=== PATIENT | male | born 1975 | race Caucasian/White ===

== ENCOUNTER → 2016-07-05 | Outpatient (CLI) | payer BC ==
[~2016-07-05] MED LIST: CLR10 PO; FLUT0.15 NAE; IBUP-1050 PO; ONDA4TAB46 PO; OXYC1TAB3 PO
[2016-07-05 12:12] LABS: BASO % 0.4 %; BASO ABS # 0.03 K/uL (0-0.2); COMPLETE YES; EOS % 2.2 %; HEMATOCRIT 46.5 % (42-52); IG% 0.5 %; LYMPH % 17.7 %; LYMPH ABS # 1.39 K/uL (1.2-3.4); MEAN CELL VOLUME 90.8 fL (80-100); MEAN CORPUSCULAR HEMOGLOBIN 30.5 pg (25-34); MEAN CORPUSCULAR HGB CONC 33.5 g/dl (32-36); MEAN PLATELET VOLUME 9.6 fL (7.4-10.4); MONO % 9.6 %; NEUT % 69.6 %; PLATELET COUNT 311 K/uL (130-400); RED BLOOD COUNT 5.12 M/uL (4.7-6.1); WHITE BLOOD COUNT 7.84 K/uL (4.8-10.8)
[2016-07-05 12:24] LABS: BLOOD UREA NITROGEN 20 mg/dl (7-18); CREATININE 0.97 mg/dl (0.60-1.40); GLUCOSE 97 mg/dl (70-99)
[2016-07-05 12:25] LABS: BUN/CREATININE RATIO 20.1 (10-20); CALCIUM 9.4 mg/dl (8.5-10.1); CARBON DIOXIDE 26 mmol/L (21-32); CHLORIDE 104 mmol/L (98-107); PHOSPHORUS 3.4 mg/dl (2.5-4.9); POTASSIUM 4.1 mmol/L (3.5-5.1); SODIUM 141 mmol/L (136-145); URIC ACID 6.6 mg/dl (2.6-7.2)
--- NOTE | 2016-07-11 15:33 | CODING QUERY MEDICAL NECESSITY ---
SUPPORTING DIAGNOSIS NEEDED 76 A supporting diagnosis is required for the test/procedure performed on this patient in order for us to be reimbursed by the patient's insurance. Please provide a supporting diagnosis for the following test/procedure listed below next to the test name along with your signature. *If there is no additional diagnosis for this patient that would support the following test/procedure please document that below next to the test/procedure. DOS 07/05/16 Test(s)/Procedure(s) that require a supporting diagnosis: * VITAMIN D, 25-HYDROXY DIAGNOSIS: Provider Signature: Date: Thank you Cristiana Ponce Health Information Management Once completed, please kindly fax back to [phone] For questions please call [phone]
== END | disposition home or self-care (01) ==
LOC: C.LAB1850 10:59
PROVIDERS: ATTEND Internal Medicine Nephrology
DX: N20.0 Calculus of kidney (principal); M10.9 Gout, unspecified

== ENCOUNTER 2019-09-14 10:43 | Observation (INO) ==
--- NOTE | 2019-09-14 10:53 | Emergency Department Note ---
History of Present Illness General Chief complaint: Arrhythmia/Palpitations Stated complaint: LIGHTHEADED, IRREGULAR HEARTBEAT Time Seen by Provider: 09/14/19 10:50 History of Present Illness Provider complaint: Palpitations and lightheadedness Onset (ago): day(s) 5 Location: chest Severity: mild Maximum Pain Intensity: 0 Associated symptoms: + chest pain; no cough, no headaches, no nausea/vomiting and no shortness of breath 44-year-old male presents emergency department with lightheadedness and palpitations. He states the symptoms began 5 days ago. He also reports chest pain. He describes pain as tightness. He rates the pain as a 1 out of 10. He denies any fevers, cough, or difficulty breathing. He denies any recent travel. No hemoptysis. No exogenous hormone usage. Patient states he was seen in the emergency department 5 days ago for similar symptoms and discharged. He was placed on a Holter monitor at after following up with his PCP Dr. Peguero. Home Medications Home Medications Medication Instructions Recorded Confirmed Type allopurinol 300 mg tablet 300 mg PO HS #30 tab 05/21/19 09/14/19 Rx Lactobacillus acidophilus 1.5 mg 100 mmu cells PO DAILY 06/07/19 09/14/19 History (250 million cell) capsule fluticasone propionate 50 1 sprays INTNAS BID PRN gm 06/07/19 09/14/19 History mcg/actuation nasal spray,suspension loratadine 10 mg tablet 10 mg PO DAILY PRN 06/07/19 09/14/19 History ondansetron HCl 8 mg tablet 8 mg PO TID PRN #30 tab 06/07/19 09/14/19 Rx meloxicam 15 mg PO DAILY PRN 09/09/19 09/14/19 History Allergies Allergy/AdvReac Type Severity Reaction Status Date / Time Penicillins Allergy Intermediate SHORTNESS Verified 09/14/19 11:50 OF BREATH Sulfa (Sulfonamide Allergy Intermediate HIVES Verified 09/14/19 11:50 Antibiotics) Past Med/Surg History Medical History DJD (degenerative joint disease) of knee History of renal stone (Chronic) X8-9 the past Nephrolithiasis (Acute) Scoliosis (Chronic) Surgical History History of spinal fusion for scoliosis (Resolved) Family History Grandfather (Maternal) Myocardial infarction Denies family history of Ovarian cancer Prostate cancer Kidney disease Breast cancer Colorectal cancer Social History Preferred Language: Albanian Breakfast Manager Required: No Beliefs That Will Affect Care: None marital status: Current Living Situation: Spouse current occupational status: employed 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 [employer] Other Information That Helps Us Care for You: No Feels Safe at Home: Yes Smoking Status: Never smoker Hx Alcohol Use: Yes Alcohol type: beer and hard liquor Hx Substance Use: No Childhood Exposure to Second-Hand Smoke: Yes Dental Care, Regularly: No Physical Activity Frequency: Does not Exercise Seatbelt Use: always Sunscreen Use: No Review of Systems A total of 10 systems reviewed and were otherwise negative Physical Exam Vital Signs Vital Signs - 24 hr 09/14/19 10:45 09/14/19 11:02 09/14/19 11:15 Temperature 36.7 C Temperature Source Oral Pulse Rate 92 H 83 83 Pulse Rate [Apical] Pulse Rate from SpO2 Sensor 85 Pulse Rhythm Pulse Rhythm [Apical] Pulse Strength [Apical] Respiratory Rate 20 15 16 Respiratory Effort / Characteristics Non-Labored Respiratory Depth Normal Respiratory Pattern Blood Pressure 171/95 H 143/87 H Blood Pressure [Right Arm] Blood Pressure Mean 120 112 Blood Pressure Mean [Right Arm] Blood Pressure Position [Right Arm] Pulse Oximetry 98 96 Oxygen Delivery Method Room Air Room Air Sepsis Recent Fever Within 48 Hours No Sepsis Action Taken by Nursing No Action Required 09/14/19 11:16 09/14/19 11:30 09/14/19 11:45 Temperature Temperature Source Pulse Rate 80 89 77 Pulse Rate [Apical] 80 Pulse Rate from SpO2 Sensor 86 73 Pulse Rhythm Regular Pulse Rhythm [Apical] Regular Pulse Strength [Apical] Normal Respiratory Rate 20 13 15 Respiratory Effort / Characteristics Non-Labored Spontaneous Respiratory Depth Normal Respiratory Pattern Regular Blood Pressure 135/78 Blood Pressure [Right Arm] 135/78 Blood Pressure Mean 94 Blood Pressure Mean [Right Arm] 97 Blood Pressure Position [Right Arm] Sitting Pulse Oximetry 97 97 98 Oxygen Delivery Method Room Air Room Air Sepsis Recent Fever Within 48 Hours Sepsis Action Taken by Nursing 09/14/19 12:15 09/14/19 12:30 09/14/19 12:31 Temperature Temperature Source Pulse Rate 85 88 82 Pulse Rate [Apical] Pulse Rate from SpO2 Sensor 68 73 73 Pulse Rhythm Pulse Rhythm [Apical] Pulse Strength [Apical] Respiratory Rate 14 19 14 Respiratory Effort / Characteristics Respiratory Depth Respiratory Pattern Blood Pressure 144/80 H 153/70 H Blood Pressure [Right Arm] Blood Pressure Mean 89 102 Blood Pressure Mean [Right Arm] Blood Pressure Position [Right Arm] Pulse Oximetry 97 98 96 Oxygen Delivery Method Sepsis Recent Fever Within 48 Hours Sepsis Action Taken by Nursing 09/14/19 12:45 09/14/19 13:00 09/14/19 13:15 Temperature Temperature Source Pulse Rate 79 85 84 Pulse Rate [Apical] Pulse Rate from SpO2 Sensor 72 80 82 Pulse Rhythm Pulse Rhythm [Apical] Pulse Strength [Apical] Respiratory Rate 14 15 15 Respiratory Effort / Characteristics Respiratory Depth Respiratory Pattern Blood Pressure 151/78 H 151/78 H Blood Pressure [Right Arm] Blood Pressure Mean 96 102 Blood Pressure Mean [Right Arm] Blood Pressure Position [Right Arm] Pulse Oximetry 96 95 96 Oxygen Delivery Method Sepsis Recent Fever Within 48 Hours Sepsis Action Taken by Nursing 09/14/19 13:30 09/14/19 13:31 Temperature Temperature Source Pulse Rate 87 81 Pulse Rate [Apical] Pulse Rate from SpO2 Sensor 63 62 Pulse Rhythm Pulse Rhythm [Apical] Pulse Strength [Apical] Respiratory Rate 15 16 Respiratory Effort / Characteristics Respiratory Depth Respiratory Pattern Blood Pressure 124/72 Blood Pressure [Right Arm] Blood Pressure Mean 85 Blood Pressure Mean [Right Arm] Blood Pressure Position [Right Arm] Pulse Oximetry 96 97 Oxygen Delivery Method Sepsis Recent Fever Within 48 Hours Sepsis Action Taken by Nursing Physical Exam GENERAL: He is oriented to person, place, and time. He appears well-developed and well-nourished. He does not appear distressed. HENT: Exam performed. - Head: Normocephalic and atraumatic. - Right Ear: External ear normal. No mastoid tenderness. - Left Ear: External ear normal. No mastoid tenderness. - Mouth/Throat: The oropharynx is clear and moist. No trismus in the jaw. No dental abscesses or uvula swelling. No oropharyngeal exudate or tonsillar abscesses. EYES: Conjunctivae and EOM are normal. Pupils are equal, round, and reactive to light. Right eye exhibits no discharge. Left eye exhibits no discharge. No scleral icterus. NECK: Normal range of motion. Neck supple. No JVD present. No spinous process tenderness present. No carotid bruit present. No rigidity. No tracheal deviation and normal range of motion present. No Brudzinski's sign and no Kernig's sign noted. CV: Normal rate, regular rhythm, normal heart sounds and intact distal pulses. There is no peripheral edema. Palpable radial pulses bue. PULM/CHEST: Effort normal and breath sounds normal. No respiratory distress. No stridor. He has no wheezes. He has no rales. - Chest Wall: He exhibits no tenderness. ABD: Obese. The abdomen is soft. Bowel sounds are normal. He has no distension. No mass is present. There is no tenderness. There is no rebound, no guarding, no Charlton's sign and no tenderness at McBurney's point. Rovsig negative. MUSC/SKEL: Normal range of motion. There is no peripheral edema, tenderness or deformity. LYMPH: No cervical adenopathy. NEURO: He is alert and oriented to person, place, and time. He has normal strength. No cranial nerve deficit or sensory deficit. Coordination and gait normal. GCS eye subscore is 4. GCS verbal subscore is 5. GCS motor subscore is 6. Cerebellar tests wnl. SKIN: Skin is warm and dry. He is not diaphoretic. PSYCH: He has a normal mood and affect. Behavior is normal. Judgment and thought content normal. Course Course 1052: The patient was evaluated in room A2. A complete history and physical exam was performed. EMR reviewed. Patient was seen in the emergency department on September 08. At that time he had a leukocytosis of 13.1. Troponin negative. CTA of the head, CTA of the head and neck, and chest x-ray were negative. Patient also had lab work done yesterday which showed a leukocytosis of 14.34. Cardiac monitoring: An order was placed for continuous cardiac monitoring. The monitor shows a rate of 95 with sinus rhythm 1300: Vital signs stable. Labs and imaging within normal limits. Given the patient's progression of symptoms and his continued system he will be admitted to the hospital for rule out ACS. [facility] hospitalist was contacted, Dr. Day. Administered Medications Discontinued Medications Aspirin (Aspirin) 324 mg PO NOW STA Stop: 09/14/19 11:10 Last Admin: 09/14/19 11:26 Dose: 324 mg Documented by: [id number] Medical Decision Making Laboratory Data Result diagrams: 09/14/19 11:16 09/14/19 11:16 Lab Results 09/14/19 09/14/19 09/14/19 Range/Units 11:16 11:16 11:16 WBC 9.54 (4.8-10.8) K/uL RBC 5.11 (4.7-6.1) M/uL Hgb 16.1 (14.0-18.0) g/dL Hct 47.6 (42-52) % MCV 93.2 (80-100) fL MCH 31.5 (25-34) pg MCHC 33.8 (32-36) g/dL RDW Std Deviation 45.4 (36.4-46.3) fL RDW Coeff of Steven 13.3 (11.5-14.5) % Plt Count 303 (130-400) K/uL MPV 9.5 (7.4-10.4) fL Immature Gran % (Auto) 0.8 % Neut % (Auto) 72.4 % Lymph % (Auto) 16.9 % Sharp % (Auto) 8.0 % Eos % (Auto) 1.7 % Baso % (Auto) 0.2 % Immature Gran # (Auto) 0.08 H (0.00-0.02) K/uL Neut # (Auto) 6.91 H (1.4-6.5) K/uL Lymph # (Auto) 1.61 (1.2-3.4) K/uL Sharp # (Auto) 0.76 H (0.11-0.59) K/uL Eos # (Auto) 0.16 (0-0.5) K/uL Baso # (Auto) 0.02 (0-0.2) K/uL PT 11.7 (9.0-12.0) Seconds INR 1.1 (0.9-1.1) APTT 26.5 (21.0-31.0) Seconds PTT Ratio 0.9 D-Dimer (0-500) ug/L FEU Sodium (136-145) mmol/L Potassium (3.5-5.1) mmol/L Chloride (98-107) mmol/L Carbon Dioxide (21-32) mmol/L Anion Gap (3-11) BUN (7-18) mg/dl Creatinine (0.6-1.4) mg/dl Est Cr Clr Drug Dosing ml/min Est GFR ( Amer) Est GFR (Non-Af Amer) BUN/Creatinine Ratio (10-20) Glucose (70-99) mg/dl Lactate 1.3 (0.4-2.0) mmol/L Calcium (8.5-10.1) mg/dl Magnesium (1.8-2.4) mg/dl Troponin I (0-0.045) ng/ml NT-Pro-B Natriuret Pep (0-450) pg/ml Lipase (73-393) U/L Influenza Type A (PCR) (Neg) Influenza Type B (PCR) (Neg) 09/14/19 09/14/19 09/14/19 Range/Units 11:16 11:16 11:16 WBC (4.8-10.8) K/uL RBC (4.7-6.1) M/uL Hgb (14.0-18.0) g/dL Hct (42-52) % MCV (80-100) fL MCH (25-34) pg MCHC (32-36) g/dL RDW Std Deviation (36.4-46.3) fL RDW Coeff of Steven (11.5-14.5) % Plt Count (130-400) K/uL MPV (7.4-10.4) fL Immature Gran % (Auto) % Neut % (Auto) % Lymph % (Auto) % Sharp % (Auto) % Eos % (Auto) % Baso % (Auto) % Immature Gran # (Auto) (0.00-0.02) K/uL Neut # (Auto) (1.4-6.5) K/uL Lymph # (Auto) (1.2-3.4) K/uL Sharp # (Auto) (0.11-0.59) K/uL Eos # (Auto) (0-0.5) K/uL Baso # (Auto) (0-0.2) K/uL PT (9.0-12.0) Seconds INR (0.9-1.1) APTT (21.0-31.0) Seconds PTT Ratio D-Dimer 400 (0-500) ug/L FEU Sodium 140 (136-145) mmol/L Potassium 3.9 (3.5-5.1) mmol/L Chloride 108 H (98-107) mmol/L Carbon Dioxide 26 (21-32) mmol/L Anion Gap 6.0 (3-11) BUN 11 (7-18) mg/dl Creatinine 0.94 (0.6-1.4) mg/dl Est Cr Clr Drug Dosing 164.2 ml/min Est GFR ( Amer) 114.6 Est GFR (Non-Af Amer) 98.9 BUN/Creatinine Ratio 12.1 (10-20) Glucose 101 H (70-99) mg/dl Lactate (0.4-2.0) mmol/L Calcium 8.6 (8.5-10.1) mg/dl Magnesium 2.2 (1.8-2.4) mg/dl Troponin I < 0.015 (0-0.045) ng/ml NT-Pro-B Natriuret Pep 29 (0-450) pg/ml Lipase 212 (73-393) U/L Influenza Type A (PCR) Neg for Influ A (Neg) Influenza Type B (PCR) Neg for Influ B (Neg) ECG Data Rate (beats per minute): 92 Rhythm: + normal sinus ECG Intervals/blocks: + Normal QRS, + Normal MT and + Normal QT-c ECG ST segments: + Normal ST segments Additional Comments: Sinus Rhythym. Rate 92. MT QRS and Qtc intervals within normal limits. No ST elevation or ST depression MDM Narrative Vital signs stable. Labs and imaging within normal limits. Given the patient's progression of symptoms and his continued system he will be admitted to the hospital for rule out ACS. [facility] hospitalist was contacted, Dr. Day. Impression & Plan Chest pain Discharge Plan Visit Data Chief Complaint: Arrhythmia/Palpitations Stated Complaint: LIGHTHEADED, IRREGULAR HEARTBEAT ED Provider: Adan Ortega Discharge Problem: Chest pain Patient Disposition: Being Evaluated by Hospitalist Discharge Instructions Interventions: ED Discharge Assessment Last Done: 09/14/19 14:26 Discharge Problem: Chest pain Qualifiers: Chest pain type: unspecified Qualified Code(s): R07.9 - Chest pain, unspecified
[2019-09-14] MEDS ORDERED: ASPIRIN CHEW 324 MG PO STA (11:09)
[2019-09-14 11:31] LABS: Basophils # (auto) 0.02 K/uL (0-0.2); Basophils % (auto) 0.2 %; Eosinophils # (auto) 0.16 K/uL (0-0.5); Eosinophils % (auto) 1.7 %; Hematocrit (blood only) 47.6 % (42-52); Hemoglobin 16.1 g/dL (14.0-18.0); Immature Granulocytes # (auto) 0.08 K/uL (0.00-0.02); Immature Granulocytes % (auto) 0.8 %; Lymphocytes # (auto) 1.61 K/uL (1.2-3.4); Lymphocytes % (auto) 16.9 %; Mean Corpuscular Hemoglobin 31.5 pg (25-34); Mean Corpuscular Hgb Conc 33.8 g/dL (32-36); Mean Corpuscular Volume 93.2 fL (80-100); Mean Platelet Volume 9.5 fL (7.4-10.4); Monocytes # (auto) 0.76 K/uL (0.11-0.59); Neutrophils # (auto) 6.91 K/uL (1.4-6.5); Neutrophils % (auto) 72.4 %; Platelet Count 303 K/uL (130-400); RDW Coefficient of Variation 13.3 % (11.5-14.5); RDW Standard Deviation 45.4 fL (36.4-46.3); Red Blood Count 5.11 M/uL (4.7-6.1); White Blood Count 9.54 K/uL (4.8-10.8)
[2019-09-14 11:42] LABS: INR 1.1 (0.9-1.1); Partial Thromboplastin Ratio 0.9; Partial Thromboplastin Time 26.5 Seconds (21.0-31.0); Prothrombin Time 11.7 Seconds (9.0-12.0)
[2019-09-14 11:47] LABS: BUN Creatinine Ratio 12.1 (10-20); Blood Urea Nitrogen 11 mg/dl (7-18); Calcium 8.6 mg/dl (8.5-10.1); Carbon Dioxide 26 mmol/L (21-32); Chloride 108 mmol/L (98-107); Creatinine Clr Calc Pharmacy 164.2 ml/min; Est GFR (African American) 114.6; Est GFR (Non-African American) 98.9; Glucose 101 mg/dl (70-99); Lipase 212 U/L (73-393); Magnesium 2.2 mg/dl (1.8-2.4); Potassium 3.9 mmol/L (3.5-5.1); Sodium 140 mmol/L (136-145)
[2019-09-14 11:52] LABS: NT Pro B Type Natriuretic Pept 29 pg/ml (0-450); Troponin I < 0.015 ng/ml (0-0.045)
--- NOTE | 2019-09-14 12:09 | XRay Report ---
XR chest 2V PA/lateral CLINICAL HISTORY: Chest Pain dyspnea COMPARISON STUDY: 09/09/2019 FINDINGS: Lungs remain clear. Mild chronic pulmonary vascular congestion. Stable postoperative changes of the thoracic spine. IMPRESSION: Chronic and postoperative change. No acute process. ACT 112: Negative or not required by law. The above report was generated using voice recognition software. It may contain grammatical, syntax or spelling errors. Electronically signed by: Yoseph Ferrera M.D. 09/14/2019 12:07 PM
[2019-09-14 12:14] LABS: Influenza A virus by PCR Neg for Influ A (Neg); Influenza B virus by PCR Neg for Influ B (Neg)
[2019-09-14 12:34] LABS: D Dimer 400 ug/L FEU (0-500)
--- NOTE | 2019-09-14 13:32 | History & Physical Report ---
Date of Service September 14, 2019 Assessment & Plan (1) Dizziness: Etiology of patient's vertigo is unclear. Consider benign positional vertigo, possible mild viral syndrome. Check orthostatics. Will order as needed meclizine. Of note, patient had CT of the brain and neck along CTA during his 09/08 ER visit, which was unremarkable. (2) Sinus tachycardia: Patient seems to have sinus tachycardia with occasional early sinus beat. Will check 2D echo and follow cardiac enzymes. We will see if we can have Holter monitor interrogated, otherwise will need to return this to PCP for final results. Will keep patient on monitor. Will ask cardiology to evaluate for further recommendations. TSH was normal. I suspect if this work-up is negative, patient can be discharged for further outpatient work-up as needed. (3) History of spinal fusion for scoliosis: Patient is on meloxicam and allopurinol which can be continued. History of Present Illness Primary Care Provider: Christiano Peguero MD This is a 44-year-old male with past medical history of morbid obesity, scoliosis with hardware in his spine that presents today complaining of lightheadedness and palpitations. Patient is a good historian although symptoms are somewhat vague. Patient tells me that about a week ago he was having some issues with "feeling foggy". These seem to be very generalized symptoms at first. He also noted some increased soreness in his back which is been an ongoing problem. More recently, he is noted waves of lightheadedness. This mostly occurs with sitting. This will last a few minutes and then resolve completely. He compared this to standing acute chest although positional changes were not necessarily involved. He also has occasional palpitations although he feels that these were not severe and seem to wax and wane as well. At one point he checked his pulse and felt that his heart skipped a beat. Patient was seen for these complaints in the emergency room on 09/08. Apparently a flutter was auscultated at [facility] the patient was sent to the emergency room for further evaluation. Work-up at this time was essentially unremarkable and the patient was discharged from the emergency room. Patient follow-up with his primary care provider on 09/09, documentation notes a repeat EKG was also unremarkable. Patient was given a Holter monitor. Patient is still wearing Holter, tells me that he was told he can remove it after 2 PM today. Exam my evaluation, patient was in no cardiopulmonary distress. Monitor shows normal sinus rhythm with a rate in the 80s with occasional PAC or early sinus beat. Further work-up has been negative so far. Allergies Allergy/AdvReac Type Severity Reaction Status Date / Time Penicillins Allergy Intermediate SHORTNESS Verified 09/14/19 11:50 OF BREATH Sulfa (Sulfonamide Allergy Intermediate HIVES Verified 09/14/19 11:50 Antibiotics) Home Medications Home Medications Medication Instructions Recorded Confirmed Type allopurinol 300 mg tablet 300 mg PO HS #30 tab 05/21/19 09/14/19 Rx Lactobacillus acidophilus 1.5 mg 100 mmu cells PO DAILY 06/07/19 09/14/19 History (250 million cell) capsule fluticasone propionate 50 1 sprays INTNAS BID PRN gm 06/07/19 09/14/19 History mcg/actuation nasal spray,suspension loratadine 10 mg tablet 10 mg PO DAILY PRN 06/07/19 09/14/19 History ondansetron HCl 8 mg tablet 8 mg PO TID PRN #30 tab 06/07/19 09/14/19 Rx meloxicam 15 mg PO DAILY PRN 09/09/19 09/14/19 History Past Med/Surg History Medical History DJD (degenerative joint disease) of knee History of renal stone (Chronic) X8-9 the past Nephrolithiasis (Acute) Scoliosis (Chronic) Surgical History History of spinal fusion for scoliosis (Resolved) Family History Grandfather (Maternal) Myocardial infarction Denies family history of Ovarian cancer Prostate cancer Kidney disease Breast cancer Colorectal cancer Social History Preferred Language: Tongan Websphere Architect Required: No marital status: current occupational status: employed 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 [employer] Feels Safe at Home: Yes Smoking Status: Never smoker Hx Alcohol Use: Yes Hx Substance Use: No Childhood Exposure to Second-Hand Smoke: Yes Dental Care, Regularly: No Physical Activity Frequency: Does not Exercise Seatbelt Use: always Sunscreen Use: No Review of Systems Constitutional: + malaise; no fever, no chills, no sweats, no weakness, no weight loss and no weight gain Eyes: as per Subjective / HPI Ear, Nose, Mouth, Throat: no ear pain and no ear discharge Respiratory: no cough, no chest congestion, no dyspnea, no dyspnea on exertion and no wheezing Cardiovascular: + palpitations; no chest pain, no chest pain at rest, no dyspnea, no orthopnea, no lightheadedness and no edema Gastrointestinal: no abdominal pain, no nausea, no vomiting, no constipation and no diarrhea/loose stools Genitourinary: no dysuria, no difficulty urinating, no urinary hesitancy and no urinary incontinence Musculoskeletal: + body aches; no back pain, no neck pain, no joint pain, no stiffness and no myalgia Integumentary: no rash Neurologic: no gait abnormality, no unsteadiness, no falls and no generalized weakness Endocrine: no polydipsia, no polyphagia and no polyuria Physical Exam Constitutional: + obese and cooperative; no acute distress Neck: trachea midline, no thyromegaly Respiratory: normal respiratory effort Auscultation: lungs clear to auscultation bilaterally; no crackles, no rales, no rhonchi and no wheezes Limited secondary to body habitus Cardiovascular: Rate/Rhythm: regular rate and regular rhythm Heart Sounds: normal S1 and normal S2 Gastrointestinal (Abdomen): Inspection/Auscultation: abdomen normal to inspection Percussion/Palpation: abdomen soft; abdomen nontender, no guarding, abdomen not rigid and no hepatosplenomegaly Musculoskeletal: no cyanosis or clubbing, extremities motor strength 5/5 Skin: no rashes, warm and dry Results & Data Vital Signs (Past 12 Hours) Vital Signs Temp Pulse Pulse Resp BP BP Pulse Ox 09/14/19 13:00 85 15 151/78 H 95 09/14/19 12:45 79 14 96 09/14/19 12:31 82 14 153/70 H 96 09/14/19 12:30 88 19 98 09/14/19 12:15 85 14 144/80 H 97 09/14/19 11:45 77 15 98 09/14/19 11:30 89 80 13 135/78 135/78 97 09/14/19 11:16 80 20 97 09/14/19 11:15 83 16 143/87 H 96 09/14/19 11:02 83 15 09/14/19 10:45 36.7 C 92 H 20 171/95 H 98 Laboratory Results WBCs 9.5, hemoglobin 6.1 hematocrit of 47.6. Platelets of 303. INR is 1.1. D- dimer is 400. Sodium 140, potassium 3.9, chloride of 108,, dioxide 26. Creatinine is 0.94 with a BUN of 11. Glucose is 101. Troponin is undetectable, I did note that was also nondetectable on 09/08. Lipase is 212. UA on 09/08 was negative. Flu swabs are negative. Diagnostic Findings XR chest 2V PA/lateral CLINICAL HISTORY: Chest Pain dyspnea COMPARISON STUDY: 09/09/2019 FINDINGS: Lungs remain clear. Mild chronic pulmonary vascular congestion. Stable postoperative changes of the thoracic spine. IMPRESSION: Chronic and postoperative change. No acute process. PG Care Time/CCT Total # of Minutes Spent Total Time Spent with Patient: Total time spent is greater than 50% in coordination of care (as documented) at patient's floor/unit and/or counseling patient: Coding Level of Care Code 03844 OBS Care - Level 3 Diagnoses Dizziness R42 Sinus tachycardia R00.0 History of spinal fusion for scoliosis Z98.1; Z87.39
[2019-09-14] MEDS ORDERED: MECLIZINE HCL 25 MG TAB PO PRN (14:43)
[2019-09-14] MEDS ORDERED: ONDANSETRON INJ 2 MG/ML 2 ML VIAL IV PRN (14:43)
[2019-09-14] MEDS ORDERED: ZOLPIDEM TARTRATE 5 MG TAB PO PRN (14:43)
[2019-09-14] MEDS ORDERED: ACETAMINOPHEN 325 MG TAB PO PRN (14:43)
[2019-09-14] MEDS ORDERED: ONDANSETRON 4 MG OD TAB PO PRN (14:43)
[2019-09-14] MEDS ORDERED: FLUTICASONE PROPIONATE NA SPR 16 GM BTL PRN (14:43)
[2019-09-14] MEDS ORDERED: MELOXICAM 7.5 MG TAB PO PRN (14:43)
[2019-09-14] MEDS ORDERED: LORATADINE 10 MG TAB PO PRN (14:43)
--- NOTE | 2019-09-14 17:53 | Electrocardiogram Report ---
Test Reason : Blood Pressure : / mmHG Vent. Rate : 092 BPM Atrial Rate : 092 BPM P-R Int : 142 ms QRS Dur : 096 ms QT Int : 360 ms P-R-T Axes : 048 056 033 degrees QTc Int : 445 ms Sinus rhythm with Premature supraventricular complexes Otherwise normal ECG When compared with ECG of 09-SEP-2019 20:19, Premature supraventricular complexes are now Present Confirmed by Clark Vargas ([id number]) on 09/14/2019 5:53:19 PM Referred By: REFERRED SELF Confirmed By:Clark Vargas
[2019-09-14] MEDS ORDERED: allopurinoL 300 MG TAB PO SCH (21:00)
--- NOTE | 2019-09-14 22:58 | Cardiology Consultation ---
Date of Consultation September 14, 2019 Assessment & Plan (1) Palpitations: (2) Chest tightness: (3) Dizziness: (4) Morbid obesity: Patient with multiple nonspecific symptoms and reasonable hemodynamics, negative enzymes, and relatively benign ECG (PACs only). Difficult to account for his multiple symptoms on a cardiac or hemodynamic basis, certainly the palpitations are likely due to his PACs and could be suppressed with a low-dose beta-tung if he felt this was a prominent symptom. However, he is more bothered by the nonspecific dizziness, which again is hard to attribute to a cardiac etiology. He was reassured that the benign ECG and cardiac enzymes weight against any acute coronary process. He did have a Holter monitor on, since he has been symptomatic over the past 2 days while being monitored, will download this and perhaps gain further insight into the pattern of his palpitations and see if there is any temporal correlation to his symptoms. Further recommendations after review of overnight telemetry and his 48 hour Holter monitor. History of Present Illness Reason for Consultation: Palpitations Requesting Physician: Wellington Day DO Attending Physician: Wellington Day DO History of Present Illness 44-year-old man with history of morbid obesity, no known cardiac history, who presents to the ER on 09/04/2019 and again today with symptoms of palpitations, chest fullness, and mild dizziness, admitted for further workup. His symptoms are at least of several weeks duration and were difficult for him to articulate precisely. He notes vague feelings of dizziness and fogginess" in his head, a chest type fullness which was not pain but was very supple, and a sensation of extra beats periodically. He is very symptoms are not necessary concordant, they can occur at various times in the last from minutes to hours. No typical anginal pain, exertion or positional symptoms, presyncope, syncope, or focal neurologic symptoms. At the time of my evaluation this evening, he was comfortable at rest, noting only occasional palpitations. Allergies Allergy/AdvReac Type Severity Reaction Status Date / Time Penicillins Allergy Intermediate SHORTNESS Verified 09/14/19 11:50 OF BREATH Sulfa (Sulfonamide Allergy Intermediate HIVES Verified 09/14/19 11:50 Antibiotics) Home Medications Home Medications Medication Instructions Recorded Confirmed Type allopurinol 300 mg tablet 300 mg PO HS #30 tab 05/21/19 09/14/19 Rx Lactobacillus acidophilus 1.5 mg 100 mmu cells PO DAILY 06/07/19 09/14/19 History (250 million cell) capsule fluticasone propionate 50 1 sprays INTNAS BID PRN gm 06/07/19 09/14/19 History mcg/actuation nasal spray,suspension loratadine 10 mg tablet 10 mg PO DAILY PRN 06/07/19 09/14/19 History ondansetron HCl 8 mg tablet 8 mg PO TID PRN #30 tab 06/07/19 09/14/19 Rx meloxicam 15 mg PO DAILY PRN 09/09/19 09/14/19 History Patient History Medical History DJD (degenerative joint disease) of knee History of renal stone (Chronic) X8-9 the past Nephrolithiasis (Acute) Scoliosis (Chronic) Surgical History History of spinal fusion for scoliosis (Resolved) Family History Myocardial infarction Grandfather (Maternal) Denies family history of Ovarian cancer Prostate cancer Kidney disease Breast cancer Colorectal cancer Social History Preferred Language: French Automatic Nailing 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 Feeder Required: No Beliefs That Will Affect Care: None marital status: Current Living Situation: Spouse current occupational status: employed 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 [employer] Other Information That Helps Us Care for You: No Feels Safe at Home: Yes Smoking Status: Never smoker Hx Alcohol Use: Yes Alcohol type: beer and hard liquor Hx Substance Use: No Childhood Exposure to Second-Hand Smoke: Yes Dental Care, Regularly: No Physical Activity Frequency: Does not Exercise Seatbelt Use: always Sunscreen Use: No Review of Systems Constitutional: + fatigue; no fever, no chills, no weight loss and no weight gain Eyes: no problem reported Ear, Nose, Mouth, Throat: no problem reported Respiratory: no cough and no dyspnea Cardiovascular: as per Subjective / HPI Gastrointestinal: no abdominal pain and no change in stools Musculoskeletal: no myalgia Integumentary: no rash and no new lesions Neurologic: + dizziness; no falls and no syncope Psychiatric: no problem reported Hematologic / Lymphatic: no easy bleeding and no easy bruising Physical Exam Physical Exam: Morbidly obese middle-aged white male in no distress. Afebrile. Mildly hypertensive. Heart rate 70s and 80s with occasional ectopy. Normal respiratory rate. Skin: No unusual lesions or ecchymosis. HEENT: Unremarkable. Neck: Jugular venous pulse at the clavicle at 90, no carotid bruits. Lungs: Clear and equal breath sounds bilaterally. No wheezing or crackles. Cardiac: Regular rhythm with occasional ectopy, normal S1 and S2. No murmur or gallop. Abdomen: Benign. Extremities: Nontender without edema. Intact peripheral pulses. Neurologic: Normal affect, nonfocal Results & Data ([facility]) Laboratory Results 09/14/19 09/14/19 11:16 14:49 Creatinine 0.94 Troponin I < 0.015 < 0.015 Diagnostic Findings ECG showed sinus rhythm at 92 bpm with occasional PACs. Chest x-ray showed no acute process. PG Care Time/CCT Total # of Minutes Spent Total Time Spent with Patient: Total time spent is greater than 50% in coordination of care (as documented) at patient's floor/unit and/or counseling patient: Coding Level of Care Code 57526 Inpt Consult Level 3 Diagnoses Palpitations R00.2 Chest tightness R07.89 Dizziness R42 Morbid obesity E66.01
[2019-09-15 07:02] LABS: Basophils # (auto) 0.01 K/uL (0-0.2); Basophils % (auto) 0.1 %; Eosinophils # (auto) 0.22 K/uL (0-0.5); Eosinophils % (auto) 2.4 %; Hematocrit (blood only) 46.5 % (42-52); Hemoglobin 15.3 g/dL (14.0-18.0); Immature Granulocytes # (auto) 0.07 K/uL (0.00-0.02); Immature Granulocytes % (auto) 0.8 %; Lymphocytes # (auto) 1.91 K/uL (1.2-3.4); Lymphocytes % (auto) 20.6 %; Mean Corpuscular Hemoglobin 31.4 pg (25-34); Mean Corpuscular Hgb Conc 32.9 g/dL (32-36); Mean Corpuscular Volume 95.5 fL (80-100); Mean Platelet Volume 9.6 fL (7.4-10.4); Monocytes # (auto) 0.77 K/uL (0.11-0.59); Monocytes % (auto) 8.3 %; Neutrophils # (auto) 6.31 K/uL (1.4-6.5); Neutrophils % (auto) 67.8 %; Platelet Count 283 K/uL (130-400); RDW Coefficient of Variation 13.6 % (11.5-14.5); RDW Standard Deviation 47.2 fL (36.4-46.3); Red Blood Count 4.87 M/uL (4.7-6.1); White Blood Count 9.29 K/uL (4.8-10.8)
[2019-09-15 07:38] LABS: Blood Urea Nitrogen 14 mg/dl (7-18); Calcium 8.9 mg/dl (8.5-10.1); Carbon Dioxide 27 mmol/L (21-32); Chloride 107 mmol/L (98-107); Creatinine Clr Calc Pharmacy 166.4 ml/min; Est GFR (African American) 106.4; Est GFR (Non-African American) 91.8; Glucose 105 mg/dl (70-99); Magnesium 2.3 mg/dl (1.8-2.4); Potassium 3.8 mmol/L (3.5-5.1); Sodium 139 mmol/L (136-145)
[2019-09-15 07:42] LABS: Troponin I < 0.015 ng/ml (0-0.045)
[2019-09-15] MEDS ORDERED: Nursing to Pharmacy Communication ONE (08:50)
[2019-09-15] MEDS ORDERED: LACTOBACILLUS ACIDOPHILUS (FLORANEX) TAB PO SCH ×2 (09:00→21:00)
--- NOTE | 2019-09-15 12:59 | XCELERA ---
[id number] \\[id number]}___[id number]
[2019-09-15] MEDS ORDERED: SODIUM CHLORIDE 0.9% 1000ML 1,000 ML IV ONE (14:44)
--- NOTE | 2019-09-15 15:19 | Cardiology Progress Note ---
Date of Service September 15, 2019 Assessment & Plan (1) Palpitations: (2) Chest tightness: (3) Dizziness: (4) Morbid obesity: Multiple nonspecific symptoms which occurred in dramatic fashion this morning and were not associated with any rhythm disturbance or hemodynamic derangement. As such, it is difficult to postulate a cardiac cause for his symptoms. No evidence of ongoing ischemia, structural heart disease, or dysrhythmia. For completeness sake, could consider stress study as outpatient, but doubt that even an abnormal stress study would explain his current atypical symptoms. Outpatient neurologic evaluation for temporal lobe seizure, psychogenic phenomenon, etc. could be pursued as well. No further inpatient evaluation indicated at this time. Okay for discharge. Case discussed with Dr. Nuno. Admission and Anticipated Discharge Date Admission Date: September 14, 2019 Subjective Patient had several episodes of feeling transiently unwell yesterday, then a fairly dramatic episode at 8:05 AM today. Once again, he had difficulty articulating the exact nature of his symptoms, but described "a wave came over me" with a feeling of fogginess and profound fatigue as well as mild difficulty catching his breath. He had some mild chest fullness but no significant chest pain and did not specifically mention any sense of palpitations. The symptoms lasted for 5 or 10 minutes before resolving spontaneously. Review of his monitor strip in detail showed only sinus rhythm at normal heart rates, although he has had PACs they were not noted during his symptomatic episode this morning. At the time of my evaluation, he was comfortable. Physical Exam Physical Exam: Morbidly obese middle-aged white male in no distress. Afebrile. Mildly hypertensive. Heart rate 70s and 80s with occasional ectopy. Normal respiratory rate. Skin: No unusual lesions or ecchymosis. HEENT: Unremarkable. Neck: Jugular venous pulse at the clavicle at 90, no carotid bruits. Lungs: Clear and equal breath sounds bilaterally. No wheezing or crackles. Cardiac: Regular rhythm with occasional ectopy, normal S1 and S2. No murmur or gallop. Abdomen: Benign. Extremities: Nontender without edema. Intact peripheral pulses. Neurologic: Normal affect, nonfocal Results & Data ([facility]) Vital Signs (Past 12 Hours) Vital Signs Temp Pulse Pulse Resp BP Pulse Ox 09/15/19 11:11 97.9 F 80 18 154/76 H 95 09/15/19 07:27 97.9 F 80 79 18 124/82 96 09/15/19 04:16 97.9 F 83 18 168/76 H 96 Diagnostic Findings Echocardiogram obtained today was completely unremarkable. PG Care Time/CCT Total # of Minutes Spent Total Time Spent with Patient: Total time spent is greater than 50% in coordination of care (as documented) at patient's floor/unit and/or counseling patient: Coding Level of Care Code 13402 Subseq Obs Care Lvl 3 Diagnoses Palpitations R00.2 Chest tightness R07.89 Dizziness R42 Morbid obesity E66.01
[2019-09-15] MEDS ORDERED: OPTIRAY 320 125ml IV PRN (17:44)
--- NOTE | 2019-09-15 17:54 | CT Scan Report ---
CT ANGIOGRAM OF THE CHEST CLINICAL HISTORY: Chest pain, dizziness. Possible pulmonary embolism. COMPARISON STUDY: Chest x-ray dated 09/14/2019 TECHNIQUE: Following the IV administration of 120 mL of Optiray-320, CT angiogram of the thorax was p erformed from the thoracic inlet to the lung bases utilizing the pulmonary embolus protocol. Images a re reviewed in the axial, sagittal, and coronal planes. IV contrast was administered without complica tion. MIP imaging was performed. A dose lowering technique was utilized adhering to the principles o f ALARA. CT DOSE: 977.12 mGy.cm FINDINGS: The examination is limited from a technical standpoint secondary to the patient's large bod y habitus, and artifact generated from spinal rodding. No pathologically enlarged axillary mediastinal or hilar lymph nodes were visualized. There was no evidence of thoracic aortic dilatation. There is suboptimal pulmonary arterial opacification. There is no evidence for central pulmonary embo li. If there is a strong clinical concern over the presence of acute pulmonary emboli, then serial le g ultrasonography could be obtained in follow-up. No pleural effusions are visualized. There was no evidence of focal pulmonary consolidation. There are scattered calcified granulomas. There is hepatic steatosis. IMPRESSION: 1. Technically limited study 2. No central pulmonary emboli identified 3. No evidence of focal pulmonary consolidation 4. Hepatic steatosis. ACT 112: Negative or not required by law. Electronically signed by: Damien Lala M.D. 09/15/2019 5:52 PM
--- NOTE | 2019-09-15 19:13 | Discharge Summary ---
Date of Service date of admission - September 14, 2019 date of discharge - September 15, 2019 Admission HPI Per Admitting Provider This is a 44-year-old male with past medical history of morbid obesity, scoliosis with hardware in his spine that presents today complaining of lightheadedness and palpitations. Patient is a good historian although symptoms are somewhat vague. Patient tells me that about a week ago he was having some issues with "feeling foggy". These seem to be very generalized symptoms at first. He also noted some increased soreness in his back which is been an ongoing problem. More recently, he is noted waves of lightheadedness. This mostly occurs with sitting. This will last a few minutes and then resolve completely. He compared this to standing acute chest although positional changes were not necessarily involved. He also has occasional palpitations although he feels that these were not severe and seem to wax and wane as well. At one point he checked his pulse and felt that his heart skipped a beat. Patient was seen for these complaints in the emergency room on 09/08. Apparently a flutter was auscultated at [employer] the patient was sent to the emergency room for further evaluation. Work-up at this time was essentially unremarkable and the patient was discharged from the emergency room. Patient follow-up with his primary care provider on 09/09, documentation notes a repeat EKG was also unremarkable. Patient was given a Holter monitor. Patient is still wearing Holter, tells me that he was told he can remove it after 2 PM today. Exam my evaluation, patient was in no cardiopulmonary distress. Monitor shows normal sinus rhythm with a rate in the 80s with occasional PAC or early sinus beat. Further work-up has been negative so far. Principal Diagnosis 1. palpitations - likely due to PACs 2. dizziness - mild orthostasis? 3. chest discomfort - etiology uncertain Discharge Exam Constitutional + morbidly obese; no acute distress Eyes PERRL (no nystagmus ) ENMT external ear and nose normal, oropharynx normal Respiratory normal respiratory effort, lungs clear to auscultation Cardiovascular Rate/Rhythm: regular rate and regular rhythm Heart Sounds: normal S1 and normal S2; no murmur Vessels: posterior tibial pulses present and dorsalis pedis pulses present; no JVD Extremities: + edema (2+ b/l ) Chest (Breasts) Additional Comments: no reproducible chest wall pain to palpation Gastrointestinal (Abdomen) normal bowel sounds, soft, nontender, no hepatosplenomegaly Neurologic moves all extremities; no focal motor deficits Speech / Cognition: normal speech Coordination: normal [id number]-[id number] test Psychiatric A+Ox3, euthymic affect Discharge Data Allergies Allergy/AdvReac Type Severity Reaction Status Date / Time Penicillins Allergy Intermediate SHORTNESS Verified 09/17/19 13:19 OF BREATH Sulfa (Sulfonamide Allergy Intermediate HIVES Verified 09/17/19 13:19 Antibiotics) Consultations [facility] Cardiology - Tigre Vargas MD Ordered Studies CT angio chest PE protocol - IMPRESSION: 1. Technically limited study 2. No central pulmonary emboli identified 3. No evidence of focal pulmonary consolidation 4. Hepatic steatosis. Echocardiogram - * EF 55-60% * normal LV wall motion * normal valve function Hospital Course (1) Dizziness: Etiology of patient's dizziness was uncertain. Sometimes he would feel "foggy" and dizzy while simply sitting. He was not technically orthostatic (BPs didn't drop with standing) however his HR did indeed rise quickly with standing. He was given IV fluids for the possibility of some component of orthostasis. He never had true vertigo. CT of the brain and CTA head/neck during his 09/08 ER visit were unremarkable. CTA chest during this admission was unrevealing and negative for PE. Echo was normal. I recommended an MRI brain during the hospitalization but he refused, stating he would need an open MRI machine to accomplish such. Thus, I advised neurology follow-up shortly after discharge. [id number] his neurological exam remained normal while here. (2) Palpitations: Likely due to PACs. PACs were seen on telemetry during this brief stay. He had been wearing a holter monitor at home prior to the hospital stay but this was NOT able to be downloaded & interpreted. However, he does have cardiology f/u the day after discharge to discuss the monitor's findings. Again echo was normal while here. (3) Chest pain: Troponins were negative. CTA chest negative for PE. Echo was normal. Etiology? Uncertain - follow-up with PCP if symptoms persist. Could need stress testing, etc. (4) History of spinal fusion for scoliosis: (5) Morbid obesity with BMI of 50.0-59.9, adult: BMI 55 Total Time Total Time Spent Total Time Spent (In Minutes): 45 Total Time Includes: Examination of the Patient, Discharge Planning, Medication Reconciliation and Communication With Other Providers Discharge Plan Discharge Items Patient Disposition: Home - Self-Care Reason For Visit: PALPITATIONS Discharge Diagnosis: 1. palpitations - likely due to "PACS" (these are also known as "extra beats"). PACs/extra beats are not harmful. 2. dizziness - uncertain cause. No evidence of heart attack, blood clots in the lungs, influenza infection. Recent CAT scans of the head without stroke, aneurysm, etc. Activity: Resume your previous activity Driving/Machine Use: no driving until cleared by your family doctor Non-emergency contact: Primary Care Provider and Insurance Verification Clerk Call non-emergency contact if: you have any medication questions, your symptoms worsen and you have a fever Follow-up/Referrals: Clark Vargas MD [Physician] - (see Dr Vargas or one of his partners if your palpitations, dizziness, etc persist; follow-up with the cardiology office for your heart monitor ) Christiano Peguero MD [Primary Care Provider] - (see Dr Peguero this week ) Mak Martinez III, MD [Physician] - (if dizziness persists please see one of the providers at [facility] neurology for additional testing ) Diet: Heart Healthy Addtl Attending Provider Instructions: You were admitted to [facility] due to palpitations, dizziness, and recent chest discomforts. You underwent an extensive work-up including blood work, flu testing, echocardiogram, CAT scan of the lungs, cardiology consultation, etc. All of your testing was normal or negative. We did not find evidence of blood clots of the lungs, pneumonia, influenza, heart attack, etc. On monitoring we saw PACs (extra beats or skipped beats). This is the likely cause of your palpitations. With that said we do recommend you follow-up this week to have the monitor you have been wearing interpreted. The exact cause of your dizziness is uncertain. It may have been related to mild dehydration but again this is not certain. As noted above your work-up to date has been negative. If your dizziness persists I would recommend that you see [facility] neurology. They may recommend more testing to determine the exact cause of your dizziness. Follow-up - 1. keep your appointment for the heart monitor interpretation 2. see Dr Peguero, your family doctor, this week 3. consider seeing [facility] Neurology Return to [facility] if - * you develop chest pains * you develop shortness of breath * you have fevers over 100.5 degrees * your dizziness is severe/worsening, you feel like you are going to pass out, etc Pending Studies at Discharge: No Stand-Alone Forms: My [facility], Work/School Release (Inpt), Smoking Cessation Medications and DC Order Prescriptions: Continued fluticasone propionate 50 mcg/actuation spray,suspension 1 sprays INTNAS BID PRN (Reason: Nasal Congestion) RF: 0 loratadine [Claritin] 10 mg tablet 10 mg PO DAILY PRN (Reason: Nausea) RF: 0 Probiotic Acidophilus 1.5 mg (250 million cell) capsule 100 mmu cells PO DAILY RF: 0 ondansetron HCl [Zofran] 8 mg tablet 8 mg PO TID PRN (Reason: nausea and vomiting) Qty: 30 RF: 1 No Action allopurinol 300 mg tablet 300 mg PO HS Qty: 30 RF: 5 Discharge Orders: Discharge Order (Routine); Ordered 09/15/19 Ordered By: Raleigh Jose Admission Data Admit Date/Time: 09/14/19 13:40 Attending Provider: Raleigh Jose Admit Provider: Wellington Day Primary Care Provider: Christiano Peguero Other Providers: Clark Vargas Other Interventions: Discharge Summary Assessment (RN) Last Done: 09/15/19 19:18 DC Date/Time DO NOT enter until pt leaves facility: 09/15/19 19:30 Coding Level of Care Code 52117 OBS Care - Discharge Diagnoses Dizziness R42 Palpitations R00.2 Chest pain R07.9 History of spinal fusion for scoliosis Z98.1; Z87.39 Morbid obesity with BMI of 50.0-59.9, adult E66.01; Z68.43
== END 2019-09-15 19:30 | disposition home or self-care (01) ==
LOC: 2W 10:43 → ED 10:43 → SUATTDRO 13:40 → 2W 14:26